=== PATIENT | female | born 1990 | race African-American/Black ===

== ENCOUNTER 2017-05-08 09:29 | Inpatient (IN) | payer MEDICAID ==
[2017-05-08] VITALS (8 sets, daily range): BP systolic 118–146; BP diastolic 65–90; Ht 162.6 cm; Wt 111.6 kg
[~2017-05-08] VITALS: Ht 162.6 cm; Wt 111.6 kg
--- NOTE | ~2017-05-08 | DS ---
PATIENT:PRINCESS BROOKE :89 MEDICAL RECORD: [id number] DISCHARGE SUMMARY ADMISSION DATE: 05/08/17 DISCHARGE DATE: 05/10/17 DATE OF ADMISSION: 05/08/2017 DATE OF DISCHARGE: 05/10/2017 ADMISSION DIAGNOSES: Nonreassuring tracing at 35 weeks' gestation and unwanted fertility. DISCHARGE DIAGNOSES: 1. Mother delivered . 2. Nonreassuring tracing. 3. unwanted fertility. ATTENDING: Oneil Calix MD PROCEDURE PERFORMED WHILE HOSPITALIZED: 1. Repeat . 2. Tubal ligation. HISTORY OF PRESENT ILLNESS: See the H&P in the chart. SUMMARY OF HOSPITALIZATION: The patient was admitted and received urgent section on day of admission. The patient had a tubal ligation. At the time of discharge, she has adequate pain control. The patient has had some issues with itching and will be taking Benadryl to control that. Standard discharge instructions have been given and she will follow up in 2 weeks for an incision check. TRANSINT:[id number] Voice Confirmation ID: [id number] DOCUMENT ID: [id number] ONEIL CALIX MD at 0820 CC: [id number] DICTATION DATE: 05/10/17 0854 TRUCK AND TRANSPORT MECHANIC: 05/11/17 0005 DIS IN 05/10/17 [id number] [place] [address]
--- NOTE | ~2017-05-08 | OP ---
PATIENT NAME: PRINCESS BROOKE MEDICAL RECORD: [id number] :89 LOCATION:[id number] ADMISSION DATE:05/08/17 SURGEON: YOSHI CALIX MD DATE OF OPERATION: 05/08/2017 PREOPERATIVE DIAGNOSES: 1. at 35 weeks gestation. 2. Unwanted fertility. 3. Nonreassuring tracing. POSTDELIVERY DIAGNOSES: 1. at 35 weeks gestation. 2. Unwanted fertility. 3. Nonreassuring tracing. 4. Dense pelvic adhesive disease. PROCEDURE: 1. Repeat low transverse section. 2. Bilateral tubal ligation using a Barbara technique. SURGEON: Yoshi Calix MD ANESTHESIOLOGIST: Dr. Lockett ANESTHETIC: Spinal. FINDINGS: Viable female in the vertex presentation, Apgars were 8 and 9, weight 2500 grams. Unremarkable appearing placenta and tubes. Ovaries poorly visualized. Dense adhesions of the uterus to the abdominal wall. SPECIMENS REMOVED 1. Placenta. 2. Portions of right and left tube. SPECIMEN DISPOSITION: All specimens to pathology. ESTIMATED BLOOD LOSS: 800 cc. FLUIDS: 1800 cc normal saline. URINE OUTPUT: 40 cc of clear urine. COMPLICATIONS: None. DRAINS: Mike to gravity. INDICATIONS: The patient is a 26-year-old G4, para 3 at term, who presented to labor and delivery with painful regular contractions. The patient was observed without cervical change; however, the tracing exhibited a bradycardic event with return to baseline. The patient had good beat to beat variability and accels. The patient continued to contract without further deceleration. BPP was ordered and was found to be 8/8. Shortly after receiving the BPP, the patient had a tetanic contraction, which resulted in bradycardia to the 60s for several moments. After terbutaline, the heart rate returned to normal baseline. The patient was counseled and the section was performed. OPERATIVE REPORT [id number] PRINCESS BROOKE DESCRIPTION OF PROCEDURE: After informed consent was assured, the patient was taken to the operating room, anesthetic was obtained and assessed and found to be adequate. A low transverse incision was made over the old scar after prepping and draping. The incision was carried down to the fascia and opened in the midline with scalpel. The incision was extended laterally with Sweet scissors and the rectus bellies dissected free superiorly and inferiorly. The peritoneum was entered and rectus bellies . Dense adhesions of the lower uterine segment to the abdominal wall was encountered. Hysterotomy was performed above these line of dense adhesions. The hysterotomy was extended with bandage scissors. The bag was ruptured and clear fluid noted. The infant was delivered on to the abdomen atraumatically and the cord was doubly clamped and cut and passed to the attendant. The cord blood sample was now obtained and the placenta was delivered via Crede maneuver. Uterus cannot be exteriorized due to adhesions. The hysterotomy was visualized and closed in 2 layers with a chromic stitch. The first layer was a running locked stitch, the second was an imbricating stitch. Pelvis was irrigated and irrigant removed. A [id number] stitch was applied along the left margin of the incision to obtain hemostasis here. Again, the hysterotomy was inspected and found to be hemostatic. Using Rose retractor, the abdominal wall was elevated, the left tube identified and a knuckle developed approximately 3-4 cm from the cornual region. This knuckle was doubly ligated with plain gut ligature. The intervening segment of tube was excised and ostia cauterized. This was repeated on the contralateral side. Again, the Rose retractor was used to elevate the abdominal wall and Y-knuckle was developed. The knuckle was doubly ligated and then intervening segment excised. The ostia was cauterized. The tubal stumps were returned to the abdomen after adequate hemostasis was assured. Fascia was now closed with a running looped PDS. After closure of the fascia, subcutaneous tissues were irrigated, bleeding vessels cauterized and the skin was reapproximated with argenis. The sponge count was correct times 2. Due to the urgent nature of the section and limited staffing, full counts were not performed of the instruments and an x-ray was performed. TRANSINT:[id number] Voice Confirmation ID: [id number] DOCUMENT ID: [id number] YOSHI CALIX MD at 1624 CC: [id number] DICTATION DATE: 05/08/17 1434 POWER TRANSFORMER INSPECTOR: 05/08/17 1453 ADM IN [facility] [address] [place] [address]
[~2017-05-08 09:29] MED LIST: IBUPROFEN600 MG PO; PERCOCET 10/3251 TA1 PO; PRENATAL COMPLE1 TAB PO
[2017-05-08 10:26] LABS: APPEARANCE CLOUDY (CLEAR); BACTERIA MODERATE /hpf (NONE SEEN); BILIRUBIN NEGATIVE (NEGATIVE); COLOR YELLOW (YELLOW); GLUCOSE NEGATIVE (NEGATIVE); KETONE NEGATIVE (NEGATIVE); NITRITE NEGATIVE (NEGATIVE); PROTEIN NEGATIVE (NEGATIVE); WHITE CELLS - URINE 0-5 /hpf (0-5)
[2017-05-08 10:27] LABS: MUCUS <1+ /lpf (NONE SEEN)
[2017-05-08 14:46] LABS: HEMATOCRIT 30.8 % (36.0-48.0); MCH 23.1 pg (26.0-34.0); MCHC 32.5 g/dL (31.0-37.0); MCV 71.3 fL (80.0-100.0); MEAN PLATELET VOLUME 11.5 fL (7.4-10.4); RBC 4.32 10x6/uL (4.00-5.40); RDW 14.7 % (11.5-14.5)
[2017-05-08 16:48] LABS: UDS - AMPHET NEGATIVE QUAL (NEGATIVE); UDS - BARB NEGATIVE QUAL (NEGATIVE); UDS - BENZO NEGATIVE QUAL (NEGATIVE); UDS - COCAINE NEGATIVE QUAL (NEGATIVE); UDS - OPIATE NEGATIVE QUAL (NEGATIVE); UDS - PCP NEGATIVE QUAL (NEGATIVE); UDS - THC NEGATIVE QUAL (NEGATIVE)
[2017-05-08 19:54] LABS: HIV 1 & 2- RAPID SCREEN NEGATIVE (NEGATIVE)
[2017-05-09] VITALS (8 sets, daily range): BP systolic 102–133; BP diastolic 58–91
[2017-05-10 01:36] VITALS: BP 116/63
[2017-05-10] MEDS ORDERED: IBUPROFEN800 MG PO (09:25)
[2017-05-10] MEDS ORDERED: PERCOCET 7.5/321 TAB PO (09:26)
[2017-05-11 17:11] LABS: HGB SOLUBILITY (SICKLE SCREEN) Negative (Negative)
[2017-05-12 03:11] LABS: HEPATITIS C ANTIBODY 0.1 (0.0-0.9); RUBELLA IGG 1.47 index (Immune >0.99)
[2017-05-12 03:11] LABS: RAPID PLASMA REAGIN Non Reactive (Non Reactive)
== END 2017-05-10 09:45 | disposition home or self-care (01) | DRG 766 ==
LOC: D.LDO 09:29 → D.LD 13:40
PROVIDERS: Obstetrics & Gynecology
PROC: 10D00Z1 Extraction of Products of Conception, Low, Open Approach (ICD-10-PCS; principal; 2017-05-08 13:15)
PROC: 0UB70ZZ Excision of Bilateral Fallopian Tubes, Open Approach (ICD-10-PCS; 2017-05-08 13:15)
DX: O34.219 Maternal care for unspecified type scar from previous cesarean delivery (principal); Z3A.35 35 weeks gestation of pregnancy; Z37.0 Single live birth; Z30.2 Encounter for sterilization; Z30.09 Encounter for other general counseling and advice on contraception; N73.6 Female pelvic peritoneal adhesions (postinfective); O76 Abnormality in fetal heart rate and rhythm complicating labor and delivery

== ENCOUNTER 2017-05-13 11:26 | Inpatient (IN) | payer MEDICAID ==
[~2017-05-13] VITALS: Ht 162.6 cm; Wt 104.5 kg
--- NOTE | ~2017-05-13 | DS ---
PATIENT:PRINCESS BROOKE :89 MEDICAL RECORD: [id number] DISCHARGE SUMMARY ADMISSION DATE: 05/13/17 DISCHARGE DATE: 05/14/17 DATE OF ADMISSION: 05/13/2017 DATE OF DISCHARGE: 05/14/2017 ADMISSION DIAGNOSES. 1. Deep vein thrombosis in period. 2. Acute embolism and thrombosis of right tibial vein. 3. Anemia . ATTENDING PHYSICIAN: Kapil Baltazar/Oneil Calix HISTORY OF PRESENT ILLNESS AND INDICATION FOR HOSPITALIZATION: See the H&P in the chart. SUMMARY OF HOSPITALIZATION: The patient was admitted to the hospital and hematology consult was obtained. The patient was started on Eliquis 5 mg b.i.d. The patient was discharged on this medication. Her anemia was addressed with oral iron. The patient was not reporting any significant pain at discharge and the incision was clean, dry and intact from her section. The bleeding risks were discussed with the patient at discharge. Standard precautions have been reviewed. She will follow up in the clinic in another 1-1/2 to 2 weeks. TRANSINT:[id number] Voice Confirmation ID: [id number] DOCUMENT ID: [id number] ONEIL CALIX MD at 1729 CC: [id number] DICTATION DATE: 06/22/17 0710 SAFETY ADMIN ASSISTANT: 06/22/17 1320 DIS IN 05/14/17 [facility] [address] [place] [address]
[~2017-05-13 11:26] MED LIST changes: +IBUPROFEN800 MG PO; +PERCOCET 7.5/321 TAB PO
[2017-05-13 13:19] LABS: BASOPHILS 0.1 % (0-2); EOSINOPHILS 5.2 % (0-7); HEMATOCRIT 29.1 % (36.0-48.0); HEMOGLOBIN 9.5 g/dL (12-16); IMMATURE GRANULOCYTES 0.6 % (0-5); MCH 23.3 pg (26.0-34.0); MCHC 32.6 g/dL (31.0-37.0); MCV 71.5 fL (80.0-100.0); MEAN PLATELET VOLUME 9.3 fL (7.4-10.4); MONOCYTES 7.9 % (2-11); NEUTROPHILS 59.2 % (40-80); RBC 4.07 10x6/uL (4.00-5.40); RDW 14.9 % (11.5-14.5); WBC 7.1 10x3/uL (4.8-10.8)
[2017-05-13 13:25] LABS: PLATELET COUNT 377 10x3/uL (130-400)
[2017-05-13 13:27] LABS: APTT 27.4 SECONDS (22.8-39.4); INR 0.94 (0.85-1.17); PROTIME 12.2 SECONDS (11.6-15.0)
[2017-05-13 13:37] LABS: ALBUMIN 2.2 g/dL (3.4-5.0); ALKALINE PHOSPHATASE 110 U/L (46-116); ALT (SGPT) 15 U/L (10-68); BILIRUBIN - TOTAL 0.42 mg/dL (0.2-1.3); CALC OSMOLALITY 278 mosm/kg (275-300); CALCIUM 8.8 mg/dL (8.5-10.1); CARBON DIOXIDE 25.9 mmol/L (21.0-32.0); CHLORIDE - SERUM 105 mmol/L (98-107); CREATININE - SERUM 0.7 mg/dL (0.6-1.3); GLUCOSE 79 mg/dL (74-106); PROTEIN - SERUM 6.5 g/dL (6.4-8.2); SODIUM 141 mmol/L (136-145); UREA NITROGEN 9 mg/dL (7-18); eGFR NON AFRICAN AMERICAN > 90 mL/min (90-120)
[2017-05-13 19:47] VITALS: BP 128/84
[2017-05-14 03:02] LABS: BASOPHILS 0.1 % (0-2); EOSINOPHILS 5.5 % (0-7); HEMATOCRIT 27.6 % (36.0-48.0); IMMATURE GRANULOCYTES 1.4 % (0-5); MCH 23.4 pg (26.0-34.0); MCHC 32.6 g/dL (31.0-37.0); MCV 71.9 fL (80.0-100.0); MEAN PLATELET VOLUME 9.7 fL (7.4-10.4); PLATELET COUNT 361 10x3/uL (130-400); RBC 3.84 10x6/uL (4.00-5.40); RDW 14.7 % (11.5-14.5); WBC 6.9 10x3/uL (4.8-10.8)
[2017-05-14 03:04] LABS: CREATININE - SERUM 0.7 mg/dL (0.6-1.3)
[2017-05-14 05:30] VITALS: BP 128/84; BMI 39.5
[2017-05-14 06:46] VITALS: Ht 162.6 cm; Wt 104.5 kg
[2017-05-14 07:53] VITALS: BP 126/79
[2017-05-14 09:12] LABS: % SATURATION 7 % (15-55); IRON 25 ug/dl (35-150); TOTAL IRON BIND CAPACITY 337 ug/dl (260-445); UNSAT IRON BIND CAPACITY 312 ug/dl (150-375)
[2017-05-15 08:16] LABS: FOLATE (FOLIC ACID) - SERUM 5.7 ng/mL (>3.0)
== END 2017-05-14 14:24 | disposition home or self-care (01) | DRG 776 ==
LOC: D.ER 11:26 → D.LD 15:00 → D.WS 05-14 12:32
PROVIDERS: Internal Medicine Hematology; Legal Medicine; Physician Assistant Medical
DX: O87.1 Deep phlebothrombosis in the puerperium (principal); I82.441 Acute embolism and thrombosis of right tibial vein; O90.81 Anemia of the puerperium

== ENCOUNTER 2017-06-07 17:35 | Emergency (ER) | payer MEDICAID ==
[2017-05-14 06:46] VITALS: BMI 39.5
== END 2017-06-07 19:50 | disposition home or self-care (01) ==
LOC: D.ER 17:35
DX: S16.1XXA Strain of muscle, fascia and tendon at neck level, initial encounter (principal); X58.XXXA Exposure to other specified factors, initial encounter; Y93.89 Activity, other specified; Y92.89 Other specified places as the place of occurrence of the external cause; M54.12 Radiculopathy, cervical region; F17.200 Nicotine dependence, unspecified, uncomplicated

== ENCOUNTER 2018-05-24 23:11 | Emergency (ER) | payer MEDICAID ==
[~2018-05-24] VITALS: Ht 162.6 cm; Wt 90.9 kg
[2018-05-24 23:25] VITALS: Ht 162.6 cm; Wt 90.9 kg
[2018-05-25] MEDS ORDERED: ALBUTEROL SULF8.5 GM INH (00:30)
[2018-05-25] MEDS ORDERED: TAMIFLU75 MG PO (00:30)
[2018-05-25] MEDS ORDERED: PHENERGAN DM SYR5 ML PO (00:31)
[2018-05-25 00:47] VITALS: BP 128/82
== END 2018-05-25 00:47 | disposition home or self-care (01) ==
LOC: D.ER 23:11
DX: J01.90 Acute sinusitis, unspecified (principal); J40 Bronchitis, not specified as acute or chronic; R09.89 Other specified symptoms and signs involving the circulatory and respiratory systems

== ENCOUNTER 2018-09-21 20:49 | Emergency (ER) | payer SELFPAY ==
[~2018-09-21] VITALS: Ht 162.6 cm; Wt 93.2 kg
[~2018-09-21 20:49] MED LIST changes: +ALBUTEROL SULF8.5 GM INH; +PHENERGAN DM SYR5 ML PO; +TAMIFLU75 MG PO
[2018-09-21 21:32] VITALS: Ht 162.6 cm; Wt 93.2 kg
[2018-09-21 23:02] VITALS: BP 125/75
== END 2018-09-21 23:03 | disposition home or self-care (01) ==
LOC: D.ER 20:49
DX: J02.0 Streptococcal pharyngitis (principal)